=== PATIENT | female | born 2000 | race Caucasian/White ===

== ENCOUNTER 2021-02-06 12:21 | Emergency (ER) | payer BC ==
--- NOTE | 2021-02-06 14:23 | EDM.PDOC ---
ED HPI GENERAL MEDICAL PROBLEM - General Chief Complaint: Eye Problems Stated Complaint: RIGHT EYE IS SORE Time Seen by Provider: 02/06/21 13:00 Source of Information: Reports: Patient, Family History Limitations: Reports: No Limitations - History of Present Illness INITIAL COMMENTS - FREE TEXT/NARRATIVE: 20 yo female present to ER with mother 4 hours after poking her self in the eye with [employer]. She states that the wand left a large glob on the eye. she did flush the eye. mild discomfort in the eye. shortly after the incident she noticed that her right pupil was fixed and dilated. She does have a mild headache and mild dizziness. 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 Denies: Eye Discharge Respiratory: Denies: Shortness of Breath, Wheezing Cardiovascular: Denies: Chest Pain GI/Abdominal: Denies: Abdominal Pain ED EXAM GENERAL W FULL EYE - Physical Exam Exam: See Below Exam Limited By: No Limitations General Appearance: Alert, WD/WN, No Apparent Distress Eye Exam: Bilateral Eye: EOMI Eyelids: Bilateral: Normal Appearance Conjunctiva & Sclera: Bilateral: Normal Appearance Cornea Exam: Bilateral: Normal Appearance Pupils: Unequal Pupillary Size: Right: 8 mm, Left: 3 mm Pupillary Reaction: Right: Absent, Left: Brisk Ears: Normal External Exam Throat/Mouth: Normal Inspection Head: Atraumatic, Normocephalic Respiratory/Chest: No Respiratory Distress Course - Vital Signs Last Recorded V/S: Last Vital Signs Temp 36.5 C 02/06/21 12:58 Pulse 70 02/06/21 12:58 Resp 15 02/06/21 12:58 BP 113/73 02/06/21 12:58 Pulse Ox 98 02/06/21 12:58 - Re-Assessments/Exams Free Text/Narrative Re-Assessment/Exam: 02/06/21 21:00 pt evaluated on arrival no acute distress. no vision changes eye flushed with 250 cc of fluid pt tolerated well. 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 In review of the ingredients [employer]ole[employer] was listed further investigation did find that this may be the ingredient causing the pupil dilation. After flushing and through ER stay pupil did decrease in dilation but dilation did not resolve. She will follow-up with her eye doctor if not fully resolved by morning Departure - Departure Time of Disposition: 14:42 Disposition: Home, Self-Care 01 Condition: Good Clinical Impression: Chemical exposure of eye - Discharge Information *PRESCRIPTION DRUG MONITORING PROGRAM REVIEWED*: Not Applicable *COPY OF PRESCRIPTION DRUG MONITORING REPORT IN PATIENT URI: Not Applicable Instructions: Eye Foreign Body, [id number] Referrals: PCP,None [Primary Care Provider] - Forms: ED Department Discharge Additional Instructions: where sunglasses until pupil return to normal size if you are still having a dilated pupil tomorrow follow-up with an eye doctor Sepsis Event Note (ED) - Evaluation Sepsis Screening Result: No Definite Risk - Focused Exam Vital Signs: Vital Signs Temp Pulse Resp BP Pulse Ox 02/06/21 12:58 36.5 C 70 15 113/73 98 02/06/21 12:51 36.5 C 70 15 113/73 98
== END 2021-02-06 14:51 | disposition home or self-care (01) ==
LOC: JP.ED 12:21
DX: T65.891A Toxic effect of other specified substances, accidental (unintentional), initial encounter (principal)
CPT/HCPCS: 99283